=== PATIENT | female | born 1985 | race Hispanic/Latino ===

== ENCOUNTER 2017-11-11 03:44 | Inpatient (IN) | payer SELFPAY ==
[~2017-11-11] VITALS: Ht 144.8 cm; Wt 59.7 kg
[2017-11-11] MEDS ORDERED: ONDANSETRON HCL MDV 20ML 2 MG/ML VIAL ONE (04:08)
[2017-11-11] MEDS ORDERED: KETOROLAC TROMETHAMINE 30MG/ML ONE (04:09)
[2017-11-11 04:13] LABS: APPEARANCE,URINE Clear (CLEAR); BILIRUBIN,URINE Negative (NEGATIVE); COLOR,URINE Dark Yellow (YELLOW); GLUCOSE, URINE (UA) Negative (NEGATIVE); KETONES,URINE Negative (NEGATIVE); LEUKOCYTE ESTERASE ,URINE Negative (NEGATIVE); NITRATE,URINE Negative (NEGATIVE); OCCULT BLOOD,URINE Moderate (NEGATIVE); PH,URINE 6.5 (5.0-8.0); PROTEIN,URINE Negative (NEGATIVE)
[2017-11-11 04:16] LABS: BASOPHILS % (AUTO) 0.4 % (0.0-5.0); EOSINOPHILS % (AUTO) 0.7 % (0.0-8.0); HEMATOCRIT 37.3 % (36-48); LYMPHOCYTES % (AUTO) 21.6 % (21.0-51.0); MEAN CORPUSCULAR HEMOGLOBIN 33.3 pg (27.0-33.0); MEAN CORPUSCULAR HGB CONC 35.2 g/dL (32.0-36.0); MEAN CORPUSCULAR VOLUME 94.8 fL (79-99); MONOCYTES % (AUTO) 6.2 % (3.0-13.0); NEUTROPHILS % (AUTO) 71.1 % (40.0-77.0); PLATELET COUNT (AUTO) 350 K/uL (130-400); RED BLOOD CELL COUNT(AUTO) 3.93 MIL/uL (4.00-5.50); RED CELL DISTRIBUTION WIDTH 12.3 % (11.0-15.5); WHITE BLOOD COUNT (AUTO) 9.6 K/uL (4.8-10.8)
[2017-11-11 04:28] LABS: CREATININE 0.8 mg/dL (0.5-1.5); POTASSIUM 3.4 mmol/L (3.5-5.1)
[2017-11-11 04:37] LABS: ALBUMIN 3.9 g/dL (3.5-5.0); BILIRUBIN,DIRECT 1.1 mg/dL (0.0-0.3); BILIRUBIN,TOTAL 1.8 mg/dL (0.2-1.0); TOTAL PROTEIN, SERUM 8.5 g/dL (6.0-8.3)
[2017-11-11 04:37] LABS: BACTERIA,URINE Rare /HPF (None Seen); MUCUS,URINE Few LPF (None Seen); WBC,URINE None Seen /HPF (0-1)
[2017-11-11] MEDS ORDERED: SODIUM CHLORIDE 0.9% 1000ML 1,000 ML IV ONE (07:35)
[2017-11-11] MEDS ORDERED: CEFTRIAXONE SODIUM 1 GM ONE (09:40)
[2017-11-11] MEDS ORDERED: SODIUM CHLORIDE 0.9% 100 ML IV ONE (09:41)
[2017-11-11] MEDS ORDERED: GADOBENATE DIMEGLUMINE 20 ML IV ONE (10:24)
[2017-11-11 19:20] VITALS: BP 115/76
[2017-11-11] MEDS: SODIUM CHLORIDE 0.9% 1000ML 1,000 ML IV SCH (21:17)
[2017-11-11] MEDS ORDERED: HYDRALAZINE HCL 20 MG/ML VIAL IV PRN (21:30)
[2017-11-11] MEDS ORDERED: MORPHINE SULFATE 2 MG/ML 1ML SYG IV PRN (21:30)
[2017-11-12 00:30] VITALS: BP 102/68
[2017-11-12 03:50] VITALS: BP 96/55
[2017-11-12 05:10] LABS: CREATININE 0.7 mg/dL (0.5-1.5); MAGNESIUM 1.8 mg/dL (1.80-2.40); POTASSIUM 3.9 mmol/L (3.5-5.1)
[2017-11-12] MEDS: SODIUM CHLORIDE 0.9% 1000ML 1,000 ML IV SCH ×2 (05:20→16:33)
[2017-11-12 05:28] LABS: HEMATOCRIT 32.1 % (36-48); MEAN CORPUSCULAR HGB CONC 34.8 g/dL (32.0-36.0); MEAN CORPUSCULAR VOLUME 94.9 fL (79-99); PLATELET COUNT (AUTO) 343 K/uL (130-400); RED BLOOD CELL COUNT(AUTO) 3.38 MIL/uL (4.00-5.50); RED CELL DISTRIBUTION WIDTH 12.5 % (11.0-15.5); WHITE BLOOD COUNT (AUTO) 6.5 K/uL (4.8-10.8)
[2017-11-12 08:00] VITALS: BP 94/50
[2017-11-12] MEDS: FAMOTIDINE/PF 20 MG/2 ML VIAL IV SCH ×2 (08:31→20:39)
[2017-11-12] MEDS: ENOXAPARIN SODIUM 40 MG/0.4 ML SYRINGE SQ SCH (08:31)
[2017-11-12 11:42] VITALS: BP 110/64
[2017-11-12 14:36] LABS: ALBUMIN 3.3 g/dL (3.5-5.0); BILIRUBIN,DIRECT 0.3 mg/dL (0.0-0.3); BILIRUBIN,TOTAL 1.1 mg/dL (0.2-1.0); CREATININE 0.7 mg/dL (0.5-1.5); POTASSIUM 3.8 mmol/L (3.5-5.1); TOTAL PROTEIN, SERUM 7.4 g/dL (6.0-8.3)
[2017-11-12 16:00] VITALS: BP 116/64
[2017-11-12] MEDS ORDERED: CEFTRIAXONE 2GM+NS 100ML 100 ML IV SCH (19:45)
[2017-11-12] MEDS: CEFTRIAXONE SODIUM 2 GM VIAL IVP SCH (20:31)
[2017-11-12 20:43] VITALS: BP 109/77
[2017-11-13] VITALS (22 sets, daily range): BP systolic 95–148; BP diastolic 52–96
[2017-11-13] MEDS: SODIUM CHLORIDE 0.9% 1000ML 1,000 ML IV SCH ×2 (04:05→23:17)
[2017-11-13 04:14] LABS: HEMATOCRIT 32.7 % (36-48); MEAN CORPUSCULAR HEMOGLOBIN 33.5 pg (27.0-33.0); MEAN CORPUSCULAR HGB CONC 35.3 g/dL (32.0-36.0); MEAN CORPUSCULAR VOLUME 94.9 fL (79-99); PLATELET COUNT (AUTO) 334 K/uL (130-400); RED BLOOD CELL COUNT(AUTO) 3.44 MIL/uL (4.00-5.50); RED CELL DISTRIBUTION WIDTH 12.5 % (11.0-15.5); WHITE BLOOD COUNT (AUTO) 7.4 K/uL (4.8-10.8)
[2017-11-13 04:25] LABS: BILIRUBIN,DIRECT 0.2 mg/dL (0.0-0.3); BILIRUBIN,TOTAL 0.6 mg/dL (0.2-1.0); CREATININE 0.8 mg/dL (0.5-1.5); POTASSIUM 3.2 mmol/L (3.5-5.1)
[2017-11-13 06:49] LABS: BASOPHILS % (MANUAL) 1 % (0-2); EOSINOPHILS % (MANUAL) 5 % (1-6); LYMPHOCYTES % (MANUAL) 52 % (22-44); MONOCYTES % (MANUAL) 8 % (2-9); SEGMENTED NEUTROPHILS % 34 % (40-70)
[2017-11-13 06:50] LABS: MAN.DIFF COMMENT-IMPRESSION MANUAL DIFFERENTIAL
[2017-11-13] MEDS ORDERED: IOPAMIDOL-370 75 ML VIAL IV ONE (08:30)
[2017-11-13] MEDS: ENOXAPARIN SODIUM 40 MG/0.4 ML SYRINGE SQ SCH (09:00)
[2017-11-13] MEDS: FAMOTIDINE/PF 20 MG/2 ML VIAL IV SCH ×2 (09:48→19:43)
[2017-11-13] MEDS ORDERED: LACTATED RINGERS 1000ML 1,000 ML IV ONE ×2 (12:34→14:09)
[2017-11-13] MEDS ORDERED: FENTANYL CITRATE PF 50 MCG/1 ML 5ML AMP IV ONE (12:52)
[2017-11-13] MEDS ORDERED: PROPOFOL 10 MG/ML 20ML VIAL IV ONE (12:52)
[2017-11-13] MEDS ORDERED: MIDAZOLAM HCL 1 MG/ML 2ML VIAL ONE (12:52)
[2017-11-13] MEDS ORDERED: LIDOCAINE HCL MPF 1% 5ML VIAL ONE (12:53)
[2017-11-13] MEDS ORDERED: ONDANSETRON HCL MDV 20ML 2 MG/ML VIAL ONE (12:53)
[2017-11-13] MEDS ORDERED: GLYCOPYRROLATE 0.2 MG/ML 5 ML VIAL ONE (12:53)
[2017-11-13] MEDS ORDERED: DEXAMETHASONE SOD PHOSPHATE 4 MG/ML 1ML VIAL ONE (12:53)
[2017-11-13] MEDS ORDERED: ROCURONIUM BROMIDE 10MG/1ML 5ML VL ONE (12:53)
[2017-11-13] MEDS ORDERED: BUPIVACAINE/PF 0.5% 30ML VIAL ONE (13:49)
[2017-11-13] MEDS ORDERED: CEFAZOLIN SODIUM 1 GM VIAL ONE (14:09)
[2017-11-13] MEDS ORDERED: NEOSTIGMINE METHYLSULFATE 1MG/ML IV ONE (14:45)
[2017-11-13] MEDS ORDERED: MEPERIDINE-PF 25 MG/ML SYG ONE (15:35)
[2017-11-13 16:11] LABS: HEMATOCRIT 34.2 % (36-48); MEAN CORPUSCULAR HEMOGLOBIN 33.7 pg (27.0-33.0); MEAN CORPUSCULAR HGB CONC 35.3 g/dL (32.0-36.0); MEAN CORPUSCULAR VOLUME 95.4 fL (79-99); PLATELET COUNT (AUTO) 367 K/uL (130-400); RED BLOOD CELL COUNT(AUTO) 3.58 MIL/uL (4.00-5.50); RED CELL DISTRIBUTION WIDTH 12.1 % (11.0-15.5)
[2017-11-13] MEDS: CEFTRIAXONE SODIUM 2 GM VIAL IVP SCH (19:43)
[2017-11-14 00:04] VITALS: BP 125/71
[2017-11-14 04:11] VITALS: BP 101/70
[2017-11-14 04:33] LABS: ALBUMIN 3.4 g/dL (3.5-5.0); BILIRUBIN,TOTAL 0.4 mg/dL (0.2-1.0); CREATININE 0.8 mg/dL (0.5-1.5); POTASSIUM 3.8 mmol/L (3.5-5.1); TOTAL PROTEIN, SERUM 7.9 g/dL (6.0-8.3)
[2017-11-14 08:00] VITALS: BP 104/63
[2017-11-14] MEDS: FAMOTIDINE/PF 20 MG/2 ML VIAL IV SCH (09:34)
[2017-11-14] MEDS: ENOXAPARIN SODIUM 40 MG/0.4 ML SYRINGE SQ SCH (09:36)
[2017-11-14 12:00] VITALS: BP 109/63
== END 2017-11-14 13:40 | disposition home or self-care (01) | DRG 418 ==
LOC: EDH 03:44 → EDHIP 03:45 → 3AH 20:20
PROVIDERS: ADMIT Family Medicine; ATTEND Family Medicine
PROC: 0FT44ZZ Resection of Gallbladder, Percutaneous Endoscopic Approach (ICD-10-PCS; principal; 2017-11-13 13:46)
DX: K80.00 Calculus of gallbladder with acute cholecystitis without obstruction (principal); N13.30 Unspecified hydronephrosis; E66.9 Obesity, unspecified; R74.0 Nonspecific elevation of levels of transaminase and lactic acid dehydrogenase [LDH]; R79.89 Other specified abnormal findings of blood chemistry; Z68.28 Body mass index [BMI] 28.0-28.9, adult; Z98.891 History of uterine scar from previous surgery
CPT/HCPCS: 36415; 74181; 74400; 76705; 80048; 80053; 80076; 81001; 83690; 83735; 84703; 85025; 85027; A4218; A9577; J0690; J0696; J1100; J1650; J1885; J2175; J2250; J2704; J2710; J3010; J3490; J7030; J7120; Q9967